=== PATIENT | male | born 1995 | race Caucasian/White ===

== ENCOUNTER 2018-01-07 10:38 | Emergency (ER) | payer SELFPAY ==
--- NOTE | 2018-01-07 10:47 | ER Report ---
History and Physical Time Seen By MD: 10:46 Hx. of Stated Complaint: PT REPORTS HE THINKS HE IS "WITHDRAWING FROM WEED", STARTED VOMITING YESTERDAY HPI/ROS CHIEF COMPLAINT: Vomiting HISTORY OF PRESENT ILLNESS: Patient is a 22-year-old male who is here from [facility] for a wedding. He states that he began feeling nauseous yesterday. This morning he tried to eat some breakfast and vomited that up and now is having diffuse abdominal cramping and intractable vomiting. Patient states he is a habitual cannabis user and has not had cannabis since this past . He feels that he may be withdrawing. The patient was brought to the emergency department by his [id number]. REVIEW OF SYSTEMS: Constitutional: No fever, no chills. Eyes: No discharge. ENT: No sore throat. Cardiovascular: No chest pain, no palpitations. Respiratory: No cough, no shortness of breath. Gastrointestinal: Diffuse abdominal cramping associated with intractable vomiting and nausea. Genitourinary: No hematuria. Musculoskeletal: No back pain. Skin: No rashes. Neurological: No headache. Allergies: Coded Allergies: No Known Drug Allergies (Unverified , 01/07/18) Home Meds No Active Prescriptions or Reported Meds Past Medical/Surgical History Denies any past medical history Hx Smoking: Yes Hx Substance Use Disorder: Yes ([facility]) Hx Alcohol Use: Yes ([facility]) Constitutional Vital Sign - Last 24 Hours 01/07/18 01/07/18 01/07/18 10:40 10:43 11:00 Temp 98.1 Pulse 50 Resp 18 B/P (MAP) 150/79 150/79 (102) 126/65 (85) Pulse Ox 100 O2 Delivery Room Air Physical Exam General Appearance: The patient is alert, has no immediate need for airway protection and no signs of toxicity. Eyes: Pupils equal and round no pallor or injection. ENT, Mouth: Mucous membranes are moist. Respiratory: There are no retractions, lungs are clear to auscultation. Cardiovascular: Regular rate and rhythm. Gastrointestinal: Diffuse abdominal pain with voluntary guarding Neurological: Awake and alert Skin: Warm and dry, no rashes. Musculoskeletal: Neck is supple non tender. Extremities are nontender, nonswollen and have full range of motion. Medical Decision Making Data Points Result Diagram: 01/07/18 1058 01/07/18 1058 Laboratory Hematology Test 01/07/18 10:58 Red Blood Count 5.18 M/uL (4.00-5.60) Mean Corpuscular Volume 91.0 fL (80.0-96.0) Mean Corpuscular Hemoglobin 31.7 pg (26.0-33.0) Mean Corpuscular Hemoglobin Concent 34.8 g/dL (32.0-36.0) Red Cell Distribution Width 13.3 % (11.5-14.5) Mean Platelet Volume 8.0 fL (7.2-11.1) Neutrophils (%) (Auto) 60.0 % (39.4-72.5) Lymphocytes (%) (Auto) 29.6 % (17.6-49.6) Monocytes (%) (Auto) 9.1 % (4.1-12.4) Eosinophils (%) (Auto) 0.5 % (0.4-6.7) Basophils (%) (Auto) 0.8 % (0.3-1.4) Nucleated RBC Relative Count (auto) 0.0 /100WBC Neutrophils # (Auto) 6.4 K/uL (2.0-7.4) Lymphocytes # (Auto) 3.1 K/uL (1.3-3.6) Monocytes # (Auto) 1.0 K/uL (0.3-1.0) Eosinophils # (Auto) 0.0 K/uL (0.0-0.5) Basophils # (Auto) 0.1 K/uL (0.0-0.1) Nucleated RBC Absolute Count (auto) 0.01 K/uL Sodium Level 141 mmol/L (137-145) Potassium Level 3.4 mmol/L (3.5-5.0) Chloride Level 100 mmol/L (98-107) Carbon Dioxide Level 23 mmol/L (22-30) Blood Urea Nitrogen 13 mg/dl (9-21) Creatinine 0.90 mg/dl (0.66-1.25) Glomerular Filtration Rate Calc > 60.0 Random Glucose 129 mg/dl (75-110) Calcium Level 9.8 mg/dl (8.4-10.2) Total Bilirubin 1.2 mg/dl (0.2-1.3) Aspartate Amino Transf (AST/SGOT) 27 U/L (0-35) Alanine Aminotransferase (ALT/SGPT) 30 U/L (0-56) Alkaline Phosphatase 54 U/L (0-126) Total Protein 8.0 g/dl (6.3-8.2) Albumin 5.2 g/dl (3.5-5.0) Lipase 69 U/L (23-300) Helicobacter pylori IgG Antibody Negative (NEGATIVE) Chemistry Test 01/07/18 10:58 White Blood Count 10.6 k/uL (4.5-11.0) Red Blood Count 5.18 M/uL (4.00-5.60) Hemoglobin 16.4 g/dL (14.0-18.0) Hematocrit 47.1 % (42.0-52.0) Mean Corpuscular Volume 91.0 fL (80.0-96.0) Mean Corpuscular Hemoglobin 31.7 pg (26.0-33.0) Mean Corpuscular Hemoglobin Concent 34.8 g/dL (32.0-36.0) Red Cell Distribution Width 13.3 % (11.5-14.5) Platelet Count 246 K/uL (150-450) Mean Platelet Volume 8.0 fL (7.2-11.1) Neutrophils (%) (Auto) 60.0 % (39.4-72.5) Lymphocytes (%) (Auto) 29.6 % (17.6-49.6) Monocytes (%) (Auto) 9.1 % (4.1-12.4) Eosinophils (%) (Auto) 0.5 % (0.4-6.7) Basophils (%) (Auto) 0.8 % (0.3-1.4) Nucleated RBC Relative Count (auto) 0.0 /100WBC Neutrophils # (Auto) 6.4 K/uL (2.0-7.4) Lymphocytes # (Auto) 3.1 K/uL (1.3-3.6) Monocytes # (Auto) 1.0 K/uL (0.3-1.0) Eosinophils # (Auto) 0.0 K/uL (0.0-0.5) Basophils # (Auto) 0.1 K/uL (0.0-0.1) Nucleated RBC Absolute Count (auto) 0.01 K/uL Glomerular Filtration Rate Calc > 60.0 Calcium Level 9.8 mg/dl (8.4-10.2) Total Bilirubin 1.2 mg/dl (0.2-1.3) Aspartate Amino Transf (AST/SGOT) 27 U/L (0-35) Alanine Aminotransferase (ALT/SGPT) 30 U/L (0-56) Alkaline Phosphatase 54 U/L (0-126) Total Protein 8.0 g/dl (6.3-8.2) Albumin 5.2 g/dl (3.5-5.0) Lipase 69 U/L (23-300) Helicobacter pylori IgG Antibody Negative (NEGATIVE) ED Course/Re-evaluation Clinical Indication for ER IV: Hydration, IV Access ED Course 01/07/2018 11:28:57 am plan at this time will be IV fluids and Zofran and a 2.5 mg of IV Haldol. We will check CBC and electrolytes. Re-evaluation 01/07/2018 11:57:53 am symptoms improved after IV fluids and medications we'll discharge home. Decision to Disposition Date: Jan 07, 2018 Decision to Disposition Time: 11:58 Depart Departure Latest Vital Signs Vital Signs Date Time Temp Pulse Resp B/P (MAP) Pulse Ox O2 Delivery O2 Flow Rate FiO2 01/07/18 11:00 126/65 (85) 01/07/18 10:40 98.1 50 18 100 Room Air Impression: Primary Impression: Vomiting Condition: Improved Disposition: HOME OR SELF-CARE New Scripts Ondansetron Hcl (ZOFRAN) 4 Mg Tablet 4 MG PO Q8H for Nausea, #15 TAB 0 Refills Prov: PROSPER HONG MD 01/07/18 Patient Instructions: Acute Nausea and Vomiting (DC) Problem Qualifiers Primary Impression: Vomiting Vomiting type: cyclical vomiting Vomiting Intractability: intractable Nausea presence: with nausea Qualified Codes: G43.A1 - Cyclical vomiting, intractable PROSPER HONG MD Jan 07, 2018 10:47
[2018-01-07] MEDS ORDERED: ONDANSETRON 4 MG/2 ML VIAL IVP ONE (10:50)
[2018-01-07] MEDS ORDERED: NS(*) 0.9% 1000 ML BAG 1,000 ML IV ONE (10:50)
[2018-01-07] MEDS ORDERED: HALOPERIDOL LACT 5 MG/ML VIAL IM ONE (10:50)
[2018-01-07 11:17] LABS: PLATELET COUNT, AUTOMATED 246 K/uL (150-450)
[2018-01-07] MEDS ORDERED: diphenhydrAMINE 50 MG/ML VIAL IVP ONE (11:45)
[2018-01-07] MEDS ORDERED: METOCLOPRAMIDE 10 MG/2 ML SDV IVP ONE (11:45)
[2018-01-07 11:58] VITALS: BP 126/65
[2018-01-07] MEDS ORDERED: ONDA4TAB97 PO (11:59)
[2018-01-08] MEDS ORDERED: ONDA4TAB PO (16:07)
== END 2018-01-07 12:00 | disposition home or self-care (01) ==
LOC: ER 10:45
DX: G43.A1 Cyclical vomiting, in migraine, intractable (principal)
CPT/HCPCS: 83690; 85025; 86677; 96361; 96372; 96374; 96375; 99284; J1200; J1630; J2405; J2765; J7030; 82040; 82247; 82310; 82374; 82435; 82565; 82947; 84075; 84132; 84155; 84295; 84450; 84460; 84520

== ENCOUNTER 2018-01-08 15:36 | Emergency (ER) | payer SELFPAY ==
[~2018-01-08 15:36] MED LIST: ONDA4TAB97 PO
--- NOTE | 2018-01-08 15:39 | ER Report ---
History and Physical Time Seen By MD: 15:38 HPI/ROS This is a 22-year-old male who lives in [facility] and has been in [place] for the past 3 days for a wedding. He was seen in the emergency department yesterday for the same symptoms. He states that he is going through marijuana withdrawal. He reports smoking marijuana every day. States he has not had marijuana in 3 days. Reports chills, agitation, nausea, and vomiting. No fever or chills. No abdominal pain. He was given Zofran tablets yesterday, and states that he vomits them upon ingestion. His friends at the bedside and say that he "has a problem with marijuana." His friends are requesting addiction counseling. He is scheduled to go back to [facility] later today or tomorrow. Remainder of the 14 system rev: Yes Allergies: Coded Allergies: No Known Drug Allergies (Unverified , 01/08/18) Home Meds Active Scripts Ondansetron (ZOFRAN ODT) 4 Mg Tab.rapdis, 4 MG PO Q6H PRN for NAUSEA/VOMITING, #20 TAB.BYRON 0 Refills Prov:IRVING EPPERSON MD 01/08/18 Ondansetron Hcl (ZOFRAN) 4 Mg Tablet, 4 MG PO Q8H for Nausea, #15 TAB 0 Refills Prov:PROSPER HONG MD 01/07/18 Reviewed Nurses Notes: Yes Old Medical Records Reviewed: Yes Hx Smoking: Yes Hx Substance Use Disorder: Yes ([facility]) Hx Alcohol Use: Yes ([facility]) Constitutional Vital Sign - Last 24 Hours 01/08/18 01/08/18 15:40 16:08 Temp 97.7 Pulse 56 60 Resp 24 24 B/P (MAP) 137/81 115/86 (96) Pulse Ox 100 100 O2 Delivery Room Air Room Air Physical Exam General Appearance: The patient is alert, has no immediate need for airway protection and no current signs of toxicity. Eyes: Pupils equal and round no injection. Respiratory: Chest is non tender, lungs are clear to auscultation. Cardiac: regular rate and rhythm Gastrointestinal: Abdomen is soft and non tender, no masses, bowel sounds normal. Neck: Neck is supple and non tender. Extremities have full range of motion and are non tender. Skin: No rashes DIFFERENTIAL DIAGNOSIS: After history and physical exam differential diagnosis was considered for other toxic ingestions, withdraw from other substances other than marijuana, infection Medical Decision Making ED Course/Re-evaluation ED Course 22-year-old male in [place] on vacation and has now presented 2 days in a row to the emergency department for nausea and vomiting associated with marijuana withdrawal. He states that because he lives in [facility] he smokes marijuana daily. He said that every time he stopped smoking marijuana he becomes nauseous and unable to take by mouth. He was given Zofran tablets yesterday, but state that he cannot tolerate the tablets. He has normal vital signs. He is agitated and belligerent during the physical exam. His friends are at the bedside and report that he needs "addiction counseling for his marijuana addiction." He denies any other drug or alcohol use. He requested warm saline and IV Zofran. She was given Zofran ODT and tolerated by mouth after that. He was given a prescription for Zofran [place] DT, and I counseled with he and his friends that he should seek addiction counseling when he arrives back in [facility] tomorrow. Decision to Disposition Date: Jan 08, 2018 Decision to Disposition Time: 16:08 Depart Departure Latest Vital Signs Vital Signs Date Time Temp Pulse Resp B/P (MAP) Pulse Ox O2 Delivery O2 Flow Rate FiO2 01/08/18 16:08 60 24 115/86 (96) 100 Room Air 01/08/18 15:40 97.7 Impression: Primary Impression: Marijuana dependence Condition: Improved Disposition: HOME OR SELF-CARE New Scripts Ondansetron (ZOFRAN ODT) 4 Mg Tab.rapdis 4 MG PO Q6H PRN for NAUSEA/VOMITING, #20 TAB.BYRON 0 Refills Prov: IRVING EPPERSON MD 01/08/18 Patient Instructions: Acute Nausea and Vomiting (ED) IRVING EPPERSON MD Jan 08, 2018 15:39
[2018-01-08] MEDS ORDERED: ONDANSETRON 4 MG ODT TABDP SL ONE (16:05)
[2018-01-08] MEDS ORDERED: ONDA4TAB PO (16:07)
[2018-01-08 16:08] VITALS: BP 115/86
== END 2018-01-08 16:17 | disposition home or self-care (01) ==
LOC: ER 15:46
DX: F12.20 Cannabis dependence, uncomplicated (principal)
CPT/HCPCS: 99283; S0119